=== PATIENT | female | born 1970 | race Caucasian/White ===

== ENCOUNTER 2024-10-23 14:56 | Outpatient (AMB) | payer OTHER, SELFPAY ==
--- NOTE | 2024-10-23 14:58 | A.OFFVIS_ITS ---
Intake Visit Reasons: Urinary tract infection Intake Note: New patient presents today for initial visit for urinary tract infection Urology Medication:none Blood Thinner:none Antibiotic Allergies:none PVR:0ml Allergies No Known Allergies Allergy (Verified 10/23/24 15:26) HPI Comments Details: History of Present Illness The patient is a 54-year-old female presenting with urinary incontinence and recurring urinary tract infections. Her symptoms commenced last year, characterized by painful urination and intermittent pelvic pain, especially after she ceased menstruating. The urinary symptoms were exacerbated by frequent bladder infections, first notable last summer and continuing with frequent episodes until initiating prophylactic Macrobid. She experiences urinary incontinence chiefly upon exerting physical stress, termed stress incontinence, triggered by sneezing, laughing, or during nervousness, with episodes beginning about three months ago. This necessitated the use of briefs for convenience. The patient was last seen regarding UTI culture in July, where UTI was confirmed, and prophylactic treatment commenced. She hasn't had further UTIs since starting daily Macrobid. Occasional trace hematuria is reported, detected during wiping. Her medical history details a prior occurrence of similar UTIs managed by prophylactic antibiotic regimens before moving locally roughly a year ago, where these issues amplified. Urinary Symptoms Review - Stress urinary incontinence during sneezing, laughing, and nervousness - Urgency and inability to stop urination once started - Pelvic pain and discomfort - Daily Macrobid for UTI prevention since July - Episodes of visible hematuria (trace blood upon wiping) - Protective brief use for about three months Results - Trace blood detected in urine culture Discussion Notes I discussed with the patient the chronic nature of urinary incontinence and the frequent urinary tract infections she experiences. I emphasized the importance of evaluating the urinary tract comprehensively to rule out possible structural anomalies, such as kidney stones or other growths, that could lead to hematuria. We agreed to initiate an ultrasound of the urinary tract and follow this with a cystoscopy for a direct bladder examination. The methods were explained, highlighting the minimally invasive nature of the cystoscopy with the use of a small scope and camera through the urethra. The potential impacts of hormonal changes in dory- or post-menopausal stages on urinary health were reviewed. Precautionary antibiotic use surrounding intercourse was discussed, but considering the patient's current non-vaginal sexual activity, we aligned to continue the current prophylactic antibiotic regime with Macrobid. Plan Ultrasound and cystoscopy are planned to assess and elucidate any underlying abnormalities causing symptoms. Prophylactic Macrobid will continue due to the successful prevention of UTIs. Evaluation of hormonal influences on incidents will prompt further review. A follow-up appointment will ensure that diagnostics are completed for proper analysis and adjustments. Patient Instructions - Continue daily oral Macrobid as prescribed for UTI prevention. - Attend ultrasound appointment at the designated radiology department. - Follow up for cystoscopy appointment to be scheduled for in-office evaluation. - Maintain the use of protective briefs as needed for urinary incontinence. - Notify clinical team if symptoms worsen or new symptoms develop. - Schedule an appointment with radiology and await their call. - Ensure all follow-ups are kept for maintaining health and evaluating interventions. Patient was informed and verbally consented to the use of an ambient scribe for clinic note documentation during this visit. Review of Systems Const All systems reviewed & are unremarkable except as noted in HPI and below Reports no additional complaints Eyes Reports no additional complaints ENT Reports no additional complaints Card Reports no additional complaints Resp Reports no additional complaints GI Reports no additional complaints Reports as per HPI Musc Reports no additional complaints Skin/Breast Reports system reviewed and no additional complaints, except as documented Neuro Reports no additional complaints Psych Reports no additional complaints Endo Reports no additional complaints Chidi/Lymph Reports no additional complaints Aller/Immun Reports no additional complaints Physical Exam Const General: cooperative, healthy appearing and no acute distress Orientation/consciousness: patient oriented x3 HEENT Head: Yes normal to inspection, Yes normocephalic and Yes atraumatic Eyes Conjunctivae: conjunctivae normal Neck Neck: Yes normal visual inspection and Yes trachea midline Chest Chest palpation & inspection: normal inspection of the chest Resp Effort & Inspection: normal respiratory effort GI Inspection: Yes normal to inspection Palpation (GI): Soft to palpation Neuro General: patient oriented x3 Psych Appearance: grossly normal Results AMB Urinalysis, Automated UA Leukoctes 0 Anju/uL Last Edit by Deborah Luke on 10/23/24 16:27 UA Nitrite Negative Last Edit by Deborah Luke on 10/23/24 16:27 UA Urobilinogen 0.2 mg/dL Last Edit by Deborah Luke on 10/23/24 16:27 UA Protein 15 mg/dL Last Edit by Deborah Luke on 10/23/24 16:27 UA pH 6.0 Last Edit by Deborah Luke on 10/23/24 16:27 UA Blood 10 Cezar/uL Last Edit by Deborah Luke on 10/23/24 16:27 UA Specific Eminence 1.030 Last Edit by Deborah Luke on 10/23/24 16:27 UA Ketone Negative Last Edit by Deborah Luke on 10/23/24 16:27 UA Bilirubin 1 mg/dL Last Edit by Deborah Luke on 10/23/24 16:27 UA Glucose 0 mg/dL Last Edit by Deborah Luke on 10/23/24 16:27 Assessment & Plan Assessment & Plan Orders: Orders AMB Urinalysis Automated Today Z13.9 - Encounter for screening, unspecified Coding
--- OUTSIDE RECORDS SUMMARY | 2024-10-23 15:01 | XMS_ITS ---
Author Organization [facility] Address [address] [place] [address] Care Team Providers Care Art Preparator Name Role Phone Michaelle Chappell Primary Care Provider Encounters Encounter Location Date Provider Diagnosis [facility] [address] [address] 08/14/2024 Michaelle Chappell Plan Of Treatment No Information Progress Notes * KARIS MUHAMMADOB:[birth year] (54 yo F)Acc No.[id number]:08/14/2024 Progress Notes Patient:?LIBIA MUHAMMAD Provider:?Michaelle Chappell M.D. :1970???Age:54 Y???Sex:Female D ate:08/14/2024 External Visit ID:[id number] Address:[address] [place], [place] [id number] Subjective: * Chief Complaints: * ??? * Medical History:? Objective: * Vitals:? Assessment: Plan: * Treatment: * * Electronic signature of Michaelle Chappell MD on 10/23/2024 at 03:01 PM EDT Sign off status: Pending * Provider:?Michaelle Chappell M.D. Date:?2024 Generated for Fouzia atkinson/Graciela/eTransmitting on:?10/23/2024 03:01 PM EDT
--- OUTSIDE RECORDS SUMMARY | 2024-10-23 15:01 | XMS_ITS ---
Author Organization [facility] Address [address] [place] [address] Care Team Providers Care Principal Technical Writer Name Role Phone Michaelle Chappell Primary Care Provider REASON FOR VISIT f/u Encounters Encounter Location Date Provider Diagnosis [facility] [address] [address] 12/05/2023 Michaelle Chappell Plan Of Treatment No Information Progress Notes * KARIS MUHAMMADOB:[birth year] (53 yo F)Acc No.[id number]:12/05/2023 Patient:?LIBIA MUHAMMAD :1970???Age:53 Y???Sex:Female Address:[address] [place] [address] [facility] [place] [address] * true * Date:? Generated for Racqueli china/Graciela/eTransmitting on:?10/23/2024 03:01 PM EDT
--- OUTSIDE RECORDS SUMMARY | 2024-10-23 15:02 | XMS_ITS ---
Author Organization [facility] Address [address] [place] [address] Care Team Providers Care Operators Teacher Name Role Phone Michaelle Chappell Primary Care Provider REASON FOR VISIT Care Coordination Encounters Encounter Location Date Provider Diagnosis [facility] [address] [address] 07/27/2024 Michaelle Chappell Encounter for genera l adult medical examination without abnormal findings Z00.00 Assessments Encounter Date Diagnosis (ICD Code) Assessment Notes Treatment Notes Treatment Clinical Notes Section Notes 07/27/2024 Encounter for general adult medical examination without abnormal findings (ICD-10 - Z00.00) Plan Of Treatment Pending Test Test Name Order Date Complete Blood Count W/ Diff 07/27/2024 Comprehensive Metabolic Panel 07/27/2024 Lipid Panel 07/27/2024 Thyroid Stimulating Hormone 07/27/2024 Progress Notes * KARIS MUHAMMADOB:[birth year] (53 yo F)Acc No.[id number]:07/27/2024 Patient:?LIBIA MUHAMMAD :1970???Age:53 Y???Sex:Female Address:[address] [place] [address] [place] [id number] Subjective: * Chief Complaints: * ???Care Coordination * Medical History:? * Surgical History:? * Hospitalization/Major Diagno stic Procedure:? * Medications:? Objective: * Vitals:? * Physical Examination:? Assessment: * Assessment: 1.?Encounter for general ger lt medical examination without abnormal findings - Z00.00??? Plan: * Treatment: * Procedure Codes:?02041 [facility] METABOLIC PANEL * true * Date:? Generated for Fouzia atkinson/Graciela/Juan on:?10/23/2024 03:02 PM EDT
--- OUTSIDE RECORDS SUMMARY | 2024-10-23 15:02 | XMS_ITS | Patient Health Record ---
Author Organization [facility] Address [address] [place] [address] Care Team Providers Care Customer Assistance Associate Name Role Phone Misti Michaelle Primary Care Provider Allergies Allergen (clinical drug ingredient) Drug/Non Drug Allergy documented on EMR Reaction Allergy Type Onset Date Status gabapentin Neurontin weight gain 20lbs Drug Allergy Active pregabalin Lyrica weight gain 20lbs Drug Allergy Active Reason For Referral No Information Medications Medication SIG (Take, Route, Frequency, Duration) Notes Start Date End Date Status Wellbutrin XL 300 mg/24 hours 1 tab(s) orally every 24 hours Active NexIUM 20 mg 1 cap(s) orally once a day for 30 day(s) Active Topamax 100 mg 1 tab(s) orally 3 times a day Active KlonoPIN 1 mg 1 tab(s) orally qd prn 03/04/2015 Active Imitrex 100 mg 1 tab(s) orally once a day not to exceed 2 tab in 24 hrs for 30 day(s) 10/12/2022 Active ergocalciferol 50,000 intl units TAKE 1 CAPSULE BY MOUTH 1 TIME A WEEK for 27 Active Geodon 20 mg 1 cap(s) qam and 2 q pm orally 2 times a day Active baclofen 10 mg 1 tab(s) orally at night Active Valtrex 1 g 2 tab(s) orally at onset of symptoms and repeat in 12 hours per each episode x 1 day for 4 days Pharmacy 09/23/2018 Active Immunizations Vaccine Route Administration Date Status Comme nts FLUCELVAX QUADRIVALENT IM Intramuscular 03/28/2021 Adminis tered Flulaval IM Intramuscular 09/11/2011 Administered Flulaval IM Intramuscular 04/02/2012 Administered Flulaval IM Intramuscular 03/25/2013 Administered Influenza IM Intramuscular 03/23/2010 Administered Problems Problem Type SNOMED Code ICD Code Onset Dates Problem Status W/U Status Risk Notes Problem Anxiety (finding) (80969869) Anxiety (unspecified) (300.00) Active confirmed Problem Migraine without aura, not refractory (819528255) Common migraine without mention of intractable migraine (346.10) Active confirmed Problem Depression (240629198) Depression (311) Active confirmed Problem Fibromyalgia (341677889) Fibromyalgia (729.1) Active confirmed Problem Dizziness (484385157) Dizziness (780.4) Active confirmed Problem Weight gain (019813187) Weight gain (783.1) Active confirmed Problem Premenstrual syndrome (21172583) Premenstrual syndrome (625.4) Active confirmed Problem Cervicalgia (79512935) Cervicalgia (723.1) Active confirmed Problem Vitamin D deficiency (26041144) Vitamin D deficiency, unspecified (E55.9) Active confirmed Problem Affective psychosis (678739247) Unspecified mood [affective] disorder (F39) Active confirmed Problem Anxiety disorder (317522723) Anxiety disorder, unspecified (F41.9) Active confirmed Problem Chronic migraine without aura, non-refractory (disorder) (189550204779114 ) Migraine without aura, not intractable, without status migrainosus (G43.009) Active confirmed Problem Hypersomnia (72814765) Hypersomnia, unspecified (G47.10) Active confirmed Problem Allergic rhinitis (01290303) Allergic rhinitis, unspecified (J30.9) Active confirmed Problem Gastro-esophagea l reflux disease without esophagitis (484957336) Gastro-esophageal reflux disease without esophagitis (K21.9) Active confirmed Problem Irritable bowel syndrome with diarrhea (554254007) Irritable bowel syndrome with diarrhea (K58.0) Active confirmed Problem Fibromyalgia (814061271) Fibromyalgia (M79.7) Active confirmed Problem Irregular menstruation (01809916) Irregular menstruation, unspecified (N92.6) Active confirmed Problem Paresthesia (finding) (12322059) Paresthesia of skin (R20.2) Active confirmed Problem Abnormal gait (06945436) Unspecified abnormalities of gait and mobility (R26.9) Active confirmed Problem Frequency of micturition (275513038) Frequency of micturition (R35.0) Active confirmed Problem Amnesia (69667849) Other amnesia (R41.3) Active confirmed Problem Adult health examination (223937596) Encounter for general adult medical examination without abnormal findings (Z00.00) Active confirmed Encounters Encounter Location Date Provider Diagnosis [facility] [address] [address] 12/05/2023 [facility] [address] [address] 07/27/2024 [facility] Encounter for genera l adult medical examination without abnormal findings Z00.00 Assessments Encounter Date Diagnosis (ICD Code) Assessment Notes Treatment Notes Treatment Clinical Notes Section Notes 07/27/2024 Encounter for general adult medical examination without abnormal findings (ICD-10 - Z00.00) Plan Of Treatment Pending Test Test Name Order Date EKG 03/23/2010 EKG 06/22/2010 EKG 09/16/2012 EKG 05/31/2016 EKG 12/26/2020 EKG 03/28/2021 EKG 11/05/2022 EKG 10/15/2013 EKG 12/16/2009 STREP A ASSAY W/OPTIC 05/27/2014 STREP A ASSAY W/OPTIC 09/08/2013 Complete Blood Count W/ Diff 12/07/2020 Complete Blood Count W/ Diff 10/12/2022 Complete Blood Count W/ Diff 07/27/2024 Complete Blood Count W/ Diff 12/22/2020 Urinalysis 03/19/2023 Urinalysis 04/24/2022 Comprehensive Metabolic Panel 10/12/2022 Comprehensive Metabolic Panel 12/07/2020 Comprehensive Metabolic Panel 07/27/2024 Comprehensive Metabolic Panel 11/08/2022 Lipid Panel 11/08/2022 Lipid Panel 07/27/2024 Lipid Panel 12/07/2020 Lipid Panel 10/12/2022 Thyroid Stimulating Hormone 10/12/2022 Thyroid Stimulating Hormone 12/07/2020 Thyroid Stimulating Hormone 07/27/2024 Thyroid Stimulating Hormone 12/22/2020 Thyroid Stimulating Hormone 11/08/2022 Vitamin D 25 Hydroxy 12/22/2020 Vitamin D 25 Hydroxy 10/12/2022 Vitamin D 25 Hydroxy 11/08/2022 Vitamin D 25 Hydroxy 12/07/2020 Urine Culture 04/24/2022 Urine Culture 03/19/2023 MicroScan Gram Negative Panel 03/19/2023 MicroScan Gram Negative Panel 04/24/2022 Future Test Test Name Order Date Vitamin D 25 Hydroxy 05/23/2021 Complete Blood Count W/ Diff 10/21/2023 Comprehensive Metabolic Panel 10/21/2023 Lipid Panel 10/21/2023 Thyroid Stimulating Hormone 10/21/2023 Insurance Providers Payer Name Payer Address Payer Phone Subscriber Number Group Number Insured Name Patient Relationship to Insured Coverage Start Date Coverage End Date [facility] ([facility] [place] [place] [phone] [id number] LIBIA MUHAMMAD Self - patient is the insured Medical (General) History Medical History History ICD Code Fibromyalgia- followed by Dr. Lopez scoliosis weight gain migraine headache incomplete RBBB PMS lyrica caused weight gain of 20 lbs in 3 months neurontin caused weight gain of 20 lbs psychiatric admission in 201 5, with history of PTSD, borderline personality and depression, abdominal pain-s/p Laparoscopic cholecys tectomy 04/2016-04/11/18-[place] admission . Pt reported she tried to OD on Benadryl the week prior, followed regularly as an outpatient by Dr. Martinez and therapist Teressa Petit Surgical History Surgery Date(Month/Year) Laparoscopic cholecystectomy with intraoperative cholangiogram- Dr. Swan 05/09/2017
== END 2024-10-23 15:54 | disposition home or self-care (01) ==
LOC: HO.HUSH 14:57
PROVIDERS: Visit Provider Urology
DX: Z13.9 Encounter for screening, unspecified (principal)

== ENCOUNTER → 2024-10-23 14:56 | Outpatient (BNVA) | payer OTHER, SELFPAY | PROVIDERS: Visit Provider Urology | DX: N39.0 Urinary tract infection, site not specified (principal); R32 Unspecified urinary incontinence | CPT/HCPCS: 81003; 99202 ==

== ENCOUNTER 2024-12-11 11:29 | Outpatient (REF) | payer OTHER, SELFPAY ==
--- NOTE | ~2024-12-11 | US_ITS ---
CLINICAL HISTORY: N39.0 - Urinary tract infection, site not specified US Renal Comparison: None Findings: Right kidney normal size and echotexture, 11.4 cm length. Left kidney normal size and echotexture, 10.5 cm length. No hydronephrosis of either kidney. Normal color Doppler. Urinary bladder is unremarkable. Prevoid volume 494 mL. Postvoid volume 0 mL. Bilateral ureteral jets are visualized. IMPRESSION: 1. Normal kidneys. This document has been electronically signed by: Jayme Fajardo MD on 12/12/2024 09:39:23
--- OUTSIDE RECORDS SUMMARY | 2024-12-11 12:25 | XMS_ITS ---
Author Organization [facility] Address [address] [place] [address] Care Team Providers Care Casing Material Weigher Name Role Phone Michaelle Chappell Primary Care Provider Encounters Encounter Location Date Provider Diagnosis [facility] [address] [address] 08/14/2024 Michaelle Chappell Plan Of Treatment No Information Progress Notes * KARIS MUHAMMADOB:[birth year] (54 yo F)Acc No.[id number]:08/14/2024 Progress Notes Patient:?LIBIA MUHAMMAD Provider:?Michaelle Chappell M.D. :1970???Age:54 Y???Sex:Female D ate:08/14/2024 External Visit ID:[id number] Address:[address] [place], [place] [id number] Subjective: * Chief Complaints: * ??? * Medical History:? Objective: * Vitals:? Assessment: Plan: * Treatment: * * Electronic signature of Michaelle Chappell MD on 12/11/2024 at 12:25 PM EDT Sign off status: Pending * Provider:?Michaelle Chappell M.D. Date:?2024 Generated for Fouzia atkinson/Graciela/eTransmitting on:?12/11/2024 12:25 PM EDT
== END 2024-12-11 11:30 | disposition home or self-care (01) ==
LOC: HO.HMGCX 11:29
PROVIDERS: Visit Provider Urology
DX: N39.0 Urinary tract infection, site not specified (principal); R32 Unspecified urinary incontinence
CPT/HCPCS: 76770

== ENCOUNTER → 2024-12-11 11:32 | Outpatient (BNV) | payer OTHER, SELFPAY | PROVIDERS: Visit Provider Specialist | DX: N39.0 Urinary tract infection, site not specified (principal) | CPT/HCPCS: 76770 ==

== ENCOUNTER 2024-12-25 13:29 | Outpatient (AMB) | payer OTHER, SELFPAY ==
--- NOTE | 2024-12-25 13:39 | MHC.OFFVIS ---
Intake Visit Reasons: Cysto/ US follow up Intake Note: Patient presents today for cysto/US follow up Renal US 12/12 Urology Medication:none Blood Thinner:none Antibiotic Allergies:none Lot: [id number] Exp:09-21-26 Allergies No Known Allergies Allergy (Verified 12/25/24 13:47) Medication List - Last Reconciled 12/25/24 by Holly Christy MD estradiol 0.01%(0.1mg/gram) (Estrace) Apply a pea-sized amount to fingertip and apply vaginally,daily; starting at the 12 o'clock position and massaging towards the 10 and 2 o'clock position vaginally vaginally daily; HPI Comments Details: 12/25/24--Here for office cystoscopy. FU microscopic hematuria Cystoscopy findings: No suspicious bladder lesions. pelvic exam-vaginal atrophy. Results: Ultrasound kidneys and bladder-11/14/2024 --Normal kidneys.Urinary bladder is unremarkable. Prevoid volume 494 mL. Postvoid volume 0 mL. Bilateral ureteral jets are visualized. 10/23/24--54-year-old female presenting with urinary incontinence and recurring urinary tract infections. Her symptoms worsen over the last year, characterized by painful urination and intermittent pelvic pain. The urinary symptoms were exacerbated by frequent bladder infections, first notable last summer and continuing with frequent episodes until initiating prophylactic Macrobid. She experiences urinary incontinence chiefly upon exerting physical stress, termed stress incontinence, triggered by sneezing, laughing, or during nervousness, with episodes beginning about three months ago. This necessitated the use of briefs for convenience. The patient was last seen regarding UTI culture in July, where UTI was confirmed, and prophylactic treatment commenced. She hasn't had further UTIs since starting daily Macrobid. Occasional hematuria is reported, detected during wiping after voiding. Her medical history details a prior occurrence of similar UTIs managed by prophylactic antibiotic regimens before moving locally roughly a year ago, where these issues amplified. Ultrasound and cystoscopy discussed for further evaluation. Review of Systems Const All systems reviewed & are unremarkable except as noted in HPI and below Reports no additional complaints Eyes Reports no additional complaints ENT Reports no additional complaints Card Reports no additional complaints Resp Reports no additional complaints GI Reports no additional complaints Reports as per HPI Musc Reports no additional complaints Skin/Breast Reports system reviewed and no additional complaints, except as documented Neuro Reports no additional complaints Psych Reports no additional complaints Endo Reports no additional complaints Chidi/Lymph Reports no additional complaints Aller/Immun Reports no additional complaints Office Procedures Cystoscopy Consent Discussed risk and benefit or proposed procedure with the patient. Information consent for procedure given to the patient. Discussed technical aspects, risks, benefits and alternatives in full. Addressed all of the patient's questions and concerns regarding the procedure. The patient demonstrated knowledge and understanding. They wish to proceed with this procedure. Preparation The patient was prepped in the usual manner. A tool procurement coordinator was present and in the room. Genitalia was prepped with betadine solution in a sterile manner. Lidocaine Jelly 2% was placed into the urethra and 16Fr flexible Olympus cystoscope was inserted into the meatus after adequate lubrication. Procedure Time out per protocol performed. Speculum used as indicated for adequate visualization of urethra, the flexible cystoscope is passed transurethrally: The bladder was inspected in its entirety with utilization retroflexion displaying: Tumor(s): no suspicious bladder lesions visualized Trabeculation: Flex Mucosal Erthema: mild Orifices: normal shape and position Urethra: normal Cystoscopy findings: no suspicious bladder lesions visualized [id number] DISPOSABLE SCOPE URO-G FLEXIBLE SCOPE Procedure code (CPT) selection complete Office Meds lidocaine HCl 2 % mucosal jelly in applicator Performing Provider: Holyl Christy MD [facility] Administered by: Paige Toro RN on 12/25/24 14:02 Dose Route Admin Location Dispensed Lot Number Expiration Date ND [employer] 10 mL intra-urethral 20 mL ciprofloxacin HCl 500 mg tablet Performing Provider: Holly Christy MD [facility] Administered by: Paige Toro RN on 12/25/24 14:02 Dose Route Admin Location Dispensed Lot Number Expiration Date NDC [employer] Vice [employer] 500 mg PO 1 tab phenazopyridine 200 mg tablet Performing Provider: Holly Christy MD [facility] Administered by: Paige Toro RN on 12/25/24 14:02 Dose Route Admin Location Dispensed Lot Number Expiration Date N[employer] Vice [employer] 200 mg PO 1 tab Results AMB Urinalysis, Automated UA Leukoctes 0 Anju/uL Last Edit by Deborah Luke on 12/25/24 16:21 UA Nitrite Negative Last Edit by Crystal Luke on 12/25/24 16:21 UA Urobilinogen 3.5 mg/dL Last Edit by Crystal Luke on 12/25/24 16:21 UA Protein 0 mg/dL Last Edit by Crystal Luke on 12/25/24 16:21 UA pH 6.0 Last Edit by Crystal Luke on 12/25/24 16:21 UA Blood 10 Cezar/uL Last Edit by Crystal Luke on 12/25/24 16:21 UA Specific Quinter 1.015 Last Edit by Crystal Luke on 12/25/24 16:21 UA Ketone Negative Last Edit by Crystal Luke on 12/25/24 16:21 UA Bilirubin 0 mg/dL Last Edit by Deborah Luke on 12/25/24 16:21 UA Glucose 0 mg/dL Last Edit by Deborah Luke on 12/25/24 16:21 Results Reviewed Results Reviewed: Laboratory Last Values Urine pH (Auto) 6.0 12/25/24 16:10 Specific Quinter (Auto) 1.015 12/25/24 16:10 Urine Protein (Auto) 0 mg/dL 12/25/24 16:10 Glucose (UA)(Auto) 0 mg/dL 12/25/24 16:10 Urine Ketones (Auto) Negative 12/25/24 16:10 Urine Blood (Auto) 10 Cezar/uL 12/25/24 16:10 Urine Nitrite (Auto) Negative 12/25/24 16:10 Urine Bilirubin (Auto) 0 mg/dL 12/25/24 16:10 Urine Urobilinogen (Auto) 3.5 mg/dL 12/25/24 16:10 Leukocyte Esterase (Auto) 0 Anju/uL 12/25/24 16:10 Date of Service: 12/11/24 CLINICAL HISTORY: N39.0 - Urinary tract infection, site not specified US Renal Comparison: None Findings: Right kidney normal size and echotexture, 11.4 cm length. Left kidney normal size and echotexture, 10.5 cm length. No hydronephrosis of either kidney. Normal color Doppler. Urinary bladder is unremarkable. Prevoid volume 494 mL. Postvoid volume 0 mL. Bilateral ureteral jets are visualized. IMPRESSION: 1. Normal kidneys. Assessment & Plan Assessment & Plan (1) Urinary incontinence: Code(s): R32 - Unspecified urinary incontinence Category: Medical (2) Recurrent UTI: Code(s): N39.0 - Urinary tract infection, site not specified Category: Medical (3) Vaginal atrophy: Code(s): N95.2 - Postmenopausal atrophic vaginitis Category: Medical Plan Plan - Continue daily oral Macrobid as prescribed for UTI prevention. - Continue to monitor - estrace cream Orders: Orders AMB Cystoscopy 12/25/24 N39.0 - Urinary tract infection, site not specified AMB Urinalysis Automated 12/25/24 Z13.9 - Encounter for screening, unspecified Medications: New estradiol 0.01%(0.1mg/gram) (Estrace) Apply a pea-sized amount to fingertip and apply vaginally,daily; starting at the 12 o'clock position and massaging towards the 10 and 2 o'clock position vaginally vaginally daily; 42.5 grams 1RF Patient Instructions: The patient had an opportunity to ask questions regarding treatment plan. The patient expressed understanding and agreement with the above treatment plan. The patient is aware they should contact our office by phone for worsening of their current condition or the appearance of new symptoms. Compliance is encouraged with any medications and followup testing that is ordered. It is a privilege to be allowed the opportunity to participate in the urologic care of your patient. If you have any questions or concerns regarding treatment for the above conditions please do not hesitate to contact me. The office telephone contact is [phone]. This note is constructed in part using voice recognition software. While every effort has been made to ensure accuracy orthopedic rn errors may have been included. Yours sincerely, Holly Christy MD Coding Level of Care Code Est Pt Level 3 (75542) Diagnoses Urinary incontinence R32 Recurrent UTI N39.0 Vaginal atrophy N95.2 CPT Codes Cystoscopy - CPT: 74362-[employer]opp[employer] ([id number])
--- OUTSIDE RECORDS SUMMARY | 2024-12-25 13:45 | XMS_ITS ---
Author Organization [facility] Address [address] [place] [id number] Care Team Providers Care Hotel Front Desk Agent Name Role Phone Michaelle Chappell Primary Care Provider [phone] Encounters Encounter Location Date Provider Diagnosis [facility] [address] [address] 08/14/2024 Michaelle Chappell Plan Of Treatment No Information Progress Notes * KARIS MUH[birth year]OB:[birth year] (54 yo F)Acc No.[id number]:08/14/2024 Progress Notes Patient:?LIBIA MUHAMMAD Provider:?Michaelle Chappell M.D. :1970???Age:54 Y???Sex:Female D ate:08/14/2024 External Visit ID:[id number] Address:[address] [place], [place] [id number] Subjective: * Chief Complaints: * ??? * Medical History:? Objective: * Vitals:? Assessment: Plan: * Treatment: * * Electronic signature of Michaelle Chappell MD on 12/25/2024 at 01:45 PM EDT Sign off status: Pending * Provider:?Michaelle Chappell M.D. Date:?2024 Generated for Fouzia atkinson/Graciela/eTransmitting on:?12/25/2024 01:45 PM EDT
== END 2024-12-25 14:36 | disposition home or self-care (01) ==
LOC: HO.HUSH 13:30
PROVIDERS: Visit Provider Urology
DX: R32 Unspecified urinary incontinence (principal); N39.0 Urinary tract infection, site not specified; N95.2 Postmenopausal atrophic vaginitis
CPT/HCPCS: 52000; 99213

== ENCOUNTER → 2024-12-25 13:29 | Outpatient (BNVA) | payer OTHER, SELFPAY | PROVIDERS: Visit Provider Urology | DX: N39.0 Urinary tract infection, site not specified (principal); R32 Unspecified urinary incontinence; N95.2 Postmenopausal atrophic vaginitis | CPT/HCPCS: 52000; 81003; 99212 ==